=== PATIENT | female | born 1985 | race Caucasian/White ===

== ENCOUNTER → 2016-09-06 | Outpatient (CLI) | payer BC ==
[~2016-09-06] MED LIST: CALC-354 PO; IBUP-1050 PO
== END | disposition home or self-care (01) ==
LOC: C.PAPS 08:34
PROVIDERS: ATTEND Obstetrics & Gynecology
DX: Z01.419 Encounter for gynecological examination (general) (routine) without abnormal findings (principal)

== ENCOUNTER → 2016-09-06 | Outpatient (CLI) | payer BC ==
[2016-09-10 01:35] LABS: CHLAMYDIA TRACH RNA*** NOT DETECTED (NOT DETECTED); GC (NEIS GONORRHOEAE)RNA** NOT DETECTED (NOT DETECTED)
== END | disposition home or self-care (01) ==
LOC: C.LABSPEC 17:58
PROVIDERS: ATTEND Obstetrics & Gynecology
DX: Z01.419 Encounter for gynecological examination (general) (routine) without abnormal findings (principal)

== ENCOUNTER → 2016-09-18 | Outpatient (CLI) | payer BC ==
[~2016-09-18] MED LIST changes: +GADAVIST IV PRN
--- NOTE | 2016-09-18 07:38 | DIAGNOSTIC IMAGING REPORT ---
MRI OF THE BRAIN WITHOUT AND WITH IV CONTRAST CLINICAL HISTORY: Head trauma. Concussion symptoms. COMPARISON STUDY: Head CT dated 08/25/2013 TECHNIQUE: MRI of the brain was performed from the vertex to the skull base utilizing various T1 and T2 weighted sequences. Following the IV administration of 6 mL of Gadavist contrast, additional enhanced images were obtained. FINDINGS: Sagittal T1, axial diffusion, proton density and T2 weighted axial, coronal FLAIR, and pre and post axial T1-weighted images were acquired. These were supplemented with post gadolinium coronal T1 weighted images. No intra or extra-axial mass lesions are visualized. Axial diffusion-weighted images reveal no evidence of acute or subacute infarction. There is no evidence of ventricular dilatation. Proton density T2-weighted and FLAIR images reveal no significant intraparenchymal signal abnormalities. There are inflammatory changes in the left maxilla sinus. Gradient echo sequences reveal no blood products. There are no abnormal flow voids. There is no evidence of pathologic enhancement. IMPRESSION: Inflammatory changes within the left maxillary sinus. Otherwise normal MRI of the brain Electronically signed by: Noe Degroot M.D. 09/18/2016 7:36 AM Dictated Date/Time: 09/18/2016 7:33 AM
== END | disposition home or self-care (01) ==
LOC: C.MRI 06:14
PROVIDERS: ATTEND Psychiatry & Neurology Neurology
DX: S06.0X9A Concussion with loss of consciousness of unspecified duration, initial encounter (principal); X58.XXXA Exposure to other specified factors, initial encounter

== ENCOUNTER 2018-12-20 19:24 | Inpatient (IN) ==
[2018-12-20] MEDS ORDERED: OXYTOCIN 30 UNITS/500 ML BAG IV PRN (19:31)
[2018-12-20] MEDS ORDERED: LACTATED RINGER'S 1,000 ML IV PRN ×2 (19:31→20:56)
[2018-12-20] MEDS ORDERED: PENICILLIN G POTASSIUM 3 MU in DEXTROSE 5% 100 ML IV PRN (19:31)
[2018-12-20] MEDS ORDERED: PENICILLIN G POTASSIUM 6 MU in DEXTROSE 5% 250 ML IV ONE (19:40)
[2018-12-20] MEDS ORDERED: LACTATED RINGER'S 1,000 ML IV SCH (19:45)
[2018-12-20 19:56] LABS: Hematocrit (blood only) 34.6 % (37-47); Hemoglobin 11.9 g/dL (12.0-16.0); Mean Corpuscular Volume 88.7 fL (80-100); Mean Platelet Volume 10.9 fL (7.4-10.4); Platelet Count 237 K/uL (130-400); RDW Coefficient of Variation 13.3 % (11.5-14.5); RDW Standard Deviation 43.1 fL (36.4-46.3); White Blood Count 21.46 K/uL (4.8-10.8)
--- NOTE | 2018-12-20 20:00 | History & Physical Report ---
Date of Service December 20, 2018 Assessment & Plan (1) Normal labor: IUP at 38 weeks in active labor. GBS(+) will start PCN G now requesting epidural analgesia anticipate vaginal . History of Present Illness Primary Care Provider: Corinne Feliz DO Patient is a 33 yo white female EDC 01/01/19 who presents at 38 weeks with regular contractions. no SROM, (+) bloody show. GBS(+) Otherwise has been uncomplicated. 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 Beliefs That Will Affect Care: None Current Living Situation: Significant Other Other Information That Helps Us Care for You: No Feels Safe at Home: Yes Safety Concerns: Feels Safe At This Time Smoking Status: Never smoker Do You Dip or Chew Tobacco: No Second Hand Exposure: No Tobacco Cessation Education Requested by Patient: No Hx Alcohol Use: No Hx Substance Use: No Review of Systems All systems reviewed & are unremarkable except as noted in HPI & below Physical Exam Constitutional: WD/WN, vitals as above Respiratory: normal respiratory effort, lungs clear to auscultation Cardiovascular: RRR, no murmur, no edema Gastrointestinal (Abdomen): normal bowel sounds, soft, nontender, no hepatosplenomegaly Musculoskeletal: no calf tenderness Genitourinary: OB Exam Abdomen: + fundal height, + vertex and + regular contractions (every 3-4 minutes) Manual OB Exam: + cervical dilation 6 cm, + cervical effacement 100% and + station 0 OB Exam Monitor Tracing: + external FHT monitor used, + external uterine monitor used, + category I and + normal FHT variability Results & Data Vital Signs (Past 12 Hours) Vital Signs Temp Pulse Resp BP 12/20/18 19:44 97.9 F 22 12/20/18 19:29 86 129/78
[2018-12-20] MEDS ORDERED: BUPIVACAINE 0.25% 30 ML VIAL ONE (20:06)
[2018-12-20] MEDS ORDERED: ePHEDrine sulfate 50 MG/ML AMP ONE (20:06)
[2018-12-20 20:07] LABS: Mean Corpuscular Hgb Conc 34.4 g/dL (32-36)
[2018-12-20] MEDS ORDERED: fentaNYL citrate 100 MCG/2 ML VIAL ONE (20:07)
[2018-12-20] MEDS ORDERED: fentaNYL 2MCG/ML ROPIV 1.25MG/ML 100 ML BAG EPI ONE (20:07)
[2018-12-20] MEDS ORDERED: PROMETHAZINE HCL 6.25 MG in SODIUM CHLORIDE 0.9% 50 ML IV PRN (20:56)
[2018-12-20] MEDS ORDERED: NALOXONE HCL 1 MG in SODIUM CHLORIDE 0.9% 1000ML 1,000 ML IV PRN (20:56)
[2018-12-20] MEDS ORDERED: DiphenhydrAMINE HCL 50 MG/ML VIAL IV PRN (20:56)
[2018-12-20] MEDS ORDERED: NALOXONE HCL 0.4 MG/1 ML VIAL/CARP IV PRN (20:56)
[2018-12-20] MEDS ORDERED: NALBUPHINE HCL INJ 10 MG/ML AMP IV PRN (20:56)
[2018-12-20] MEDS ORDERED: ONDANSETRON INJ 2 MG/ML 2 ML VIAL IV PRN (20:56)
[2018-12-20] MEDS ORDERED: ePHEDrine sulfate 50 MG/ML AMP IV PRN (20:56)
[2018-12-20] MEDS ORDERED: fentaNYL 2MCG/ML ROPIV 1.25MG/ML 100 ML BAG EPI PRN (20:56)
--- NOTE | 2018-12-20 20:56 | Anesthesiology Consultation ---
Date of Service December 20, 2018 Assessment & Plan (1) Encounter for pre-operative examination: Chart Review Chart Review: Patient NOT seen in Pre Admission Testing and Acceptable Risk for Labor Epidural Consults Requested none History Height/Weight Height: 5 ft 6 in Weight: 70.307 kg Allergies Allergy/AdvReac Type Severity Reaction Status Date / Time No Known Allergies Allergy Unverified 08/25/13 19:29 Medications Home Medications Medication Instructions Recorded Confirmed Last Taken CALCIUM CARBONATE-CHOLECALCIFE 1 tab PO DAILY #0 08/25/13 Unknown (CALTRATE 600+D) Ibuprofen (Advil) 600 mg PO prn ud #0 tab 04/27/16 Unknown vit-iron fum-folic ac 1 tab PO DAILY 12/20/18 12/20/18 12/19/18 21:00 [ Vitamin] Active Medications Generic Name Dose Route Start Last Admin Trade Name Freq PRN Reason Stop Dose Admin Lactated Ringer's 1,000 mls @ 125 mls/hr 12/20/18 19:45 12/20/18 19:37 Lr IV 12/22/18 19:44 125 mls/hr .Q8H RAMONA Administration Lactated Ringer's 1,000 mls @ 999 mls/hr 12/20/18 19:31 12/20/18 19:54 Lr IV 01/19/19 19:30 999 mls/hr .Q1H1M PRN Administration Pre-Anesthesia Social History Smoking Status: Never smoker Do You Dip or Chew Tobacco: No Hx Alcohol Use: No Hx Substance Use: No substance use type: does not use Physical Exam Vital Signs Last Vital Signs Temp 36.6 C 12/20/18 19:44 Pulse 82 12/20/18 20:53 Resp 22 12/20/18 19:44 BP 126/52 L 12/20/18 20:53 Pulse Ox 100 12/20/18 20:51 Testing Laboratory Results 12/20/18 19:49
[2018-12-21] MEDS ORDERED: OXYCODONE/ACETAMINOPHEN 5mg/325mg TAB PO PRN (02:48)
[2018-12-21] MEDS ORDERED: ACETAMINOPHEN 325 MG TAB PO PRN (02:48)
[2018-12-21] MEDS ORDERED: BISACODYL 10 MG SUPP PR PRN (02:48)
[2018-12-21] MEDS ORDERED: OXYTOCIN 30 UNITS/500 ML BAG IV PRN (02:48)
[2018-12-21] MEDS ORDERED: BENZOCAINE 20% AER SPR 82.5 GM CAN EXT PRN (02:48)
[2018-12-21] MEDS ORDERED: SUPERCREAM 0.870% 15 GM JAR EXT PRN (02:48)
[2018-12-21] MEDS ORDERED: HYDROCORTISONE ACETATE 25 MG SUPP PR PRN (02:48)
--- NOTE | 2018-12-21 04:49 | Delivery Summary ---
DATE OF OPERATION: 12/21/2018 The patient is a 33-year-old 1, para 0 white female, EDC of 01/01/2019, who presented at 38 weeks in active labor. She received effective epidural analgesia and ruptured membranes for clear fluid spontaneously. She progressed to full dilation and then pushed effectively over an intact perineum for delivery of a viable female , direct occiput posterior presentation. Loose nuchal cord was reduced after delivering the head. The rest of the infant delivered easily, was placed on the mother's abdomen for further attention and drying. There was vigorous crying and the was moving all 4 limbs. The cord was then clamped and cut after 30 seconds. After getting a cord blood sample, the placenta was expressed intact with a 3-vessel cord. A first-degree vaginal laceration was repaired with 3-0 chromic in the usual fashion. Estimated blood loss was 300 mL. Post- bleeding was controlled with dilute Pitocin. Mother and infant were doing well after delivery. I attest to the content of the Intraoperative Record and any orders documented therein. Any exception s are noted below.
--- NOTE | 2018-12-21 07:21 | Anesthesia Procedure Note ---
Date of Service December 21, 2018 Anesthesia Post Epidural Note Vital Signs Vital Signs: Temp Pulse Resp BP Pulse Ox 37.1 C 81 18 114/58 L 93 12/21/18 06:00 12/21/18 06:00 12/21/18 06:00 12/21/18 06:00 12/21/18 02:37 Pain Intensity Bilateral Lower Abdomen: Pain Intensity: 0 Bilateral Episiotomy/Laceration: Pain Intensity: 3 Notes Mental Status: alert / awake / arousable and participated in evaluation Nausea / Vomiting: adequately controlled Pain: adequately controlled Airway Patency, RR, SpO2: stable & adequate BP & HR: stable & adequate Hydration State: stable & adequate Neuraxial Anesthesia: was administered and sensory block is resolving Anesthetic Complications: no major complications apparent and Pt Satisfied with anesthetic care Epidural: Removed without complications and With tip intact
[2018-12-21] MEDS: IBUPROFEN 600 MG TAB PO PRN ×3 (09:55→23:16)
[2018-12-21] MEDS: PRENATAL VITAMIN 1 TAB PO SCH (09:55)
[2018-12-21] MEDS: DOCUSATE SODIUM 100 MG CAP PO SCH ×2 (09:55→21:19)
[2018-12-21] MEDS ORDERED: BISACODYL 5 MG TABEC PO SCH (20:00)
--- OUTSIDE RECORDS SUMMARY | 2018-12-21 22:45 | External Medical Summary | Continuity of Care Document ---
:1985 Author Name Lazaro Finley, Provider Address Unavailable Unavailable , Care Team Providers Name Role Phone Susan Rod M.D. Unavailable Hermilo [email or web address] Unavailable Unavailable Unavailable Unavailable Unavailable Problems Encounter for supervision of normal firs t in third trimester (V22.0) (Z34.03) Carrier of group B Streptococcus (V02.51) (Z22.330) Headache (784.0) (R51) Vertigo (780.4) (R42) Neck pain (723.1) (M54.2) Allergies and Adverse Reactions No Known Drug Allergies (Allergy) Medications Calcium TABS Refills: 0 Pre-Amie TABS Refills: 0 Procedures History of Colposcopy Status: Completed Immunizations Tdap (Adacel) On: 13-Oct-2018 15:01 Lot #: [id number], [employer] Family History Brother Family history of Esophageal Reflux Status: Active Unknown Family Member Family history of Pure Hypercholesterolemia Status: Active Comments: Family History Family history of Osteoporosis (V17.81) Status: Active Comments: Family History Grandmother Family history of malignant neoplasm of breast (V16.3) (Z80. 3) Status: Active Family history of Lymph node cancer (196.9) (C77.9) Status: Active Mother FHx: hypercholesterolemia (V18.19) (Z83.42) Status: Active Plan of Treatment Planned Encounters Appointment; Susan Rod M.D. Start: 23-Dec-2018 15:10 Request Planned Observations Planned Goals not documented Results No Known Results Results not documented Vital Signs 17-Dec-2018 15:02 Systolic 122 mm[Hg] Diastolic 74 mm[Hg] Weight 155 lb Height 65.5 in BMI Calculated 25.4 kg/m2 BSA Calculated 1.78 m2 09-Dec-2018 15:04 Systolic 110 mm[Hg] Diastolic 70 mm[Hg] Weight 157.25 lb Height 65.5 in BMI Calculated 25.77 kg/m2 BSA Calculated 1.8 m2 25-Nov-2018 15:03 Systolic 104 mm[Hg] Diastolic 68 mm[Hg] Weight 151.4 lb Height 65.5 in BMI Calculated 24.81 kg/m2 BSA Calculated 1.77 m2 Encounters Appointment; Zandra Jones M.D. 17-Dec-2018 15:10 Encounter Diagnosis: Problem not documented Appointment; Karo Bridges M.D. 09-Dec-2018 15:10 Encounter Diagnosis: Problem not documented Appointment; OBGYN SC2, Ultrasound 27-Nov-2018 14:30 Encounter Diagnosis: Problem not documented Appointment; Vianca Fernandez M.D. 25-Nov-2018 15:10 Encounter Diagnosis: Problem not documented Appointment; Charlie Lewis M.D. 10-Nov-2018 14:30 Encounter Diagnosis: Problem not documented Appointment; Madalyn Hartman DO 27-Oct-2018 15:00 Encounter Diagnosis: Problem not documented Appointment; Karo Bridges M.D. 13-Oct-2018 14:30 Encounter Diagnosis: Problem not documented Appointment; Zandra Jones M.D. 22-Sep-2018 14:20 Encounter Diagnosis: Problem not documented Appointment; OBGYN SC2, Ultrasound 22-Sep-2018 13:30 Encounter Diagnosis: Problem not documented Appointment; Charlie Lewis M.D. 21-Aug-2018 16:20 Encounter Diagnosis: Problem not documented Appointment; OBGYN SC1, Ultrasound 21-Aug-2018 15:30 Encounter Diagnosis: Problem not documented Appointment; Tamica Souza M.D. 23-Jul-2018 15:00 Encounter Diagnosis: Problem not documented Appointment; Ssuan Rod M.D. 25-Jun-2018 14:50 Encounter Diagnosis: Problem not documented Appointment; OB SC1, Procedure Rm 26-May-2018 15:30 Encounter Diagnosis: Problem not documented Appointment; Madalyn Hartman DO 26-May-2018 15:30 Encounter Diagnosis: Problem not documented Appointment; OB SC1, Nursing Station 18-May-2018 15:00 Encounter Diagnosis: Problem not documented Appointment; Tejal Miller PA-C 09-Sep-2017 14:20 Encounter Diagnosis: Problem not documented Appointment; Thu Muhammad CRNP 22-Jul-2017 11:00 Encounter Diagnosis: Problem not documented Appointment; Thalia Chinchilla M.D. 07-Apr-2017 15:20 Encounter Diagnosis: Problem not documented Appointment; Susan Rod M.D. 23-Dec-2018 15:10 Encounter Diagnosis: Problem not documented
[2018-12-22] MEDS: IBUPROFEN 600 MG TAB PO PRN ×3 (05:11→13:56)
[2018-12-22 06:27] LABS: Hematocrit (blood only) 30.6 % (37-47); Hemoglobin 10.5 g/dL (12.0-16.0); Mean Corpuscular Hgb Conc 34.3 g/dL (32-36); Mean Corpuscular Volume 90.3 fL (80-100); Mean Platelet Volume 10.5 fL (7.4-10.4); Platelet Count 198 K/uL (130-400); RDW Coefficient of Variation 13.7 % (11.5-14.5); RDW Standard Deviation 45.5 fL (36.4-46.3); Red Blood Count 3.39 M/uL (4.2-5.4); White Blood Count 14.33 K/uL (4.8-10.8)
--- NOTE | 2018-12-22 07:06 | Obstetrical Progress Note ---
Date of Service <Martha Richmond MD - Last Filed: 12/22/18 07:20> December 22, 2018 Assessment & Plan <Martha Richmond MD - Last Filed: 12/22/18 07:20> (1) care following vaginal delivery: 33yo with vaginal delivery at 38 weeks. GBS+. PPD #1 -Routine care -Ambulation encouraged -Pain control Subjective <Martha Richmond MD - Last Filed: 12/22/18 07:20> Ambulation: ambulating normally Voiding: no voiding problems Passing Gas:: Yes Diet Tolerance:: regular diet Lochia:: Moderate Feeding Type:: breast feeding Current Pain Level(1-10): 3 Eyes: no problem reported (no blurry vision) Respiratory: no dyspnea Cardiovascular: no chest pain, no palpitations, no lightheadedness, no edema and no calf pain Gastrointestinal: no nausea and no vomiting Genitourinary (female): no dysuria Neurologic: no headache(s) Physical Exam <Martha Richmond MD - Last Filed: 12/22/18 07:20> Vital Signs (Past 24 Hours) Last Vital Signs Temp 36.7 C 12/21/18 23:20 Pulse 76 12/21/18 23:20 Resp 18 12/21/18 23:20 BP 115/68 12/21/18 23:20 Pulse Ox 98 12/21/18 09:45 Respiratory normal respiratory effort, lungs clear to auscultation Cardiovascular Rate/Rhythm: regular rate and regular rhythm Extremities: no calf tenderness and no pedal edema Genitourinary OB Exam Abdomen: + fundal height Fundus: + firm and + relation to umbilicus (at umbilicus) Results & Data <Martha Richmond MD - Last Filed: 12/22/18 07:20> Laboratory Results Laboratory Results - last 24 hr 12/22/18 06:13 WBC 14.33 H RBC 3.39 L Hgb 10.5 L Hct 30.6 L MCV 90.3 MCH 31.0 MCHC 34.3 RDW Std Deviation 45.5 RDW Coeff of Natanael 13.7 Plt Count 198 MPV 10.5 H Medications Administered Home Medications vit-iron fum-folic ac [ Vitamin] 1 tab PO DAILY 12/20/18 [History Confirmed 12/20/18] Active Medications Acetaminophen (Tylenol) 650 mg PO Q6H PRN PRN Reason: Pain/PACHECO/Fever Stop: 01/20/19 02:47 Last Admin: 12/21/18 21:20 Dose: 650 mg Documented by: Benzocaine (Dermoplast Pain Relieving [place]) 1 appln EXT PRN PRN PRN Reason: Perineal Discomfort Stop: 01/20/19 02:47 Last Admin: 12/21/18 05:33 Dose: 82.5 appln Documented by: Bisacodyl (Dulcolax) 10 mg ID DAILY PRN PRN Reason: No BM on 2nd post- day Stop: 01/20/19 02:47 Cocaine HCl (Supercream 0.870%) 1 gm EXT BID PRN PRN Reason: Hemorrhoidal Inflammation Stop: 01/04/19 02:47 Last Admin: 12/21/18 05:32 Dose: 1 appln Documented by: Diphtheria/Pertussis/Tetanus Vacc (Adacel) 0.5 ml IM .ONCE ONE Stop: 12/22/18 09:01 Docusate Sodium (Colace) 100 mg PO BID RAMONA Stop: 01/20/19 08:59 Last Admin: 12/21/18 21:19 Dose: 100 mg Documented by: Hydrocortisone (Anusol Hc) 25 mg ID BID PRN PRN Reason: Hemorrhoidal Inflammation Stop: 01/20/19 02:47 Lactated Ringer's (Lr) 1,000 mls @ 125 mls/hr IV .Q8H [facility] Stop: 12/22/18 19:44 Last Infusion: 12/21/18 03:07 Dose: Infused Documented by: Oxytocin (Pitocin) 30 units in 500 mls @ 333.333 mls/hr IV .Q1H30M PRN; Protocol PRN Reason: Bleeding Control Stop: 01/19/19 19:30 Oxytocin (Pitocin) 30 units in 500 mls @ 333.333 mls/hr IV .Q1H30M PRN; Protocol PRN Reason: Bleeding Control Stop: 01/20/19 02:47 Last Titration: 12/21/18 04:00 Dose: Infused Documented by: Ibuprofen (Motrin) 600 mg PO Q4H PRN PRN Reason: Pain/PACHECO/Cramping/Fever Stop: 01/20/19 02:47 Last Admin: 12/22/18 05:11 Dose: 600 mg Documented by: Oxycodone/Acetaminophen (Percocet 5mg/325mg) 1 tab PO Q4H PRN PRN Reason: Pain not relieved by... Stop: 01/04/19 02:47 Prenat Multivit/[place]/Iron/Folic Ac ( Vitamin) 1 tab PO QAM RAMONA Stop: 01/20/19 08:59 Last Admin: 12/21/18 09:55 Dose: 1 tab Documented by: <Karo Bridges MD, FACOG - Last Filed: 12/22/18 08:46> Co-Signing Physician Notes Resident Physician Supervision Note: I was present with Dr. Mendoza during the history and exam. I discussed the case with the resident and agree with the findings and plan as documented in the note. Any exceptions or clarifications are listed here: Pt doing well. . feels well. routine pp care. Documented By: Karo Bridges MD, FACOG
[2018-12-22] MEDS ORDERED: DIPHTHERIA/TETANUS/PERTUSSIS 0.5 ML SYR/VIAL IM ONE (09:00)
[2018-12-22] MEDS: PRENATAL VITAMIN 1 TAB PO SCH (09:05)
[2018-12-22] MEDS: DOCUSATE SODIUM 100 MG CAP PO SCH (09:05)
== END 2018-12-22 16:10 | disposition home or self-care (01) | DRG 807 ==
LOC: OPB 19:24 → 4S1 19:26 → 4S2 12-21 06:00